=== PATIENT | female | born 1945 | race African-American/Black ===

== ENCOUNTER 2019-08-20 11:51 | Emergency (ER) | payer BC ==
[~2019-08-20] VITALS: Ht 170.2 cm; Wt 127.0 kg
[2019-08-20] MEDS ORDERED: LOSARTAN POTASS25 MG ORAL (12:14)
--- NOTE | 2019-08-20 12:16 | Emergency Room Report ---
History of Present Illness General Chief Complaint: To Be Triaged Present Illness HPI 74-year-old female presents to the emergency department complaining of 8 out of 10 severity localized pain, tenderness, open wounds and bleeding to the distal aspect of the left fingers x1 day. Patient reports that she accidentally closed her hand in the car door this morning. Patient denies taking blood thinning medication she reports history of allergy to naproxen/Aleve. Patient states she has not taken any medications for her pain she denies significant past medical history. Pt. is unsure when her last tdap vaccination was. Pt. Is right-hand dominant. Denies numbness tingling or loss of sensation or gross motor movements of the extremities, Denies CP, Palpitations, LOC, AMS, dizziness, Changes in Vision, weakness or a sudden severe headache. Allergies: Coded Allergies: NAPROXEN (Verified Allergy, Unknown, INTERNAL BLEEDING, 11/03/17) Patient History Past Medical History: see triage record Past Surgical History: none Pertinent Family History: none Now: No Reviewed Nursing Documentation: PMH: Agreed; PSxH: Agreed Review of Systems All Other Systems: negative except mentioned in HPI Physical Exam Sp02 EP Interpretation: reviewed, normal General Appearance: no apparent distress, alert, GCS 15, non-toxic Head: normocephalic, atraumatic Eyes: bilateral eye normal inspection, bilateral eye PERRL ENT: hearing grossly normal, normal voice Neck: full range of motion Respiratory: lungs clear, normal breath sounds, speaking full sentences Cardiovascular #1: regular rate, rhythm, normal capillary refill Musculoskeletal: gait/station normal, normal range of motion, tender - TTP distal LMF and left index finger just proximal to cuticle fold. avulsion of the cuticles noted. no evidence of tendond involvement, able to flex and extend both affected fingers, no paresthesias. Neurologic: alert, oriented x3, responsive, motor strength/tone normal, sensory intact, speech normal, grossly normal Psychiatric: judgement/insight normal Skin: other - avulsion lacerations of the cuticles of the left middle and index finger. Lymphatic: no adenopathy Medical Decision Making PA Attestation Dr. Mera is my supervising Physician whom patient management has been discussed with. Diagnostic Impression: Primary Impression: Fracture, finger, distal phalanx Qualified Codes: S62.663A - Nondisplaced fracture of distal phalanx of left middle finger, initial encounter for closed fracture Additional Impressions: Avulsion of skin of finger without complication Qualified Codes: S61.209A - Unspecified open wound of unspecified finger without damage to nail, initial encounter Crush injury to finger Qualified Codes: S67.10XA - Crushing injury of unspecified finger(s), initial encounter ER Course 74-year-old female presents to the emergency department complaining of 8 out of 10 severity localized pain, tenderness, open wounds and bleeding to the distal aspect of the left fingers x1 day. Patient reports that she accidentally closed her hand in the car door this morning. Patient denies taking blood thinning medication she reports history of allergy to naproxen/Aleve. Patient states she has not taken any medications for her pain she denies significant past medical history. Pt. is unsure when her last tdap vaccination was. Pt. Is right-hand dominant. Denies numbness tingling or loss of sensation or gross motor movements of the extremities, Denies CP, Palpitations, LOC, AMS, dizziness, Changes in Vision, weakness or a sudden severe headache. Ddx considered but are not limited to Fracture, dislocation, contusion, Sprain/ Strain/Spasm, Laceration, crush injury, subungual hematoma, compartment syndrome , dislocation just to name a few. Vital signs: are WNL, pt. is afebrile H&PE are most consistent with musculoskeletal injury will perform imaging to r/ o fractures/dislocations. ORDERS: - X-ray left hand 3 views - negative for fx, Dislocation, or significant soft tissue injury, per preliminary read in ED, and signed by AWA Pop , my supervising physician has reviewed, and agrees with my interpretation. ED INTERVENTIONS: - avulsion lacerations were cleaned, examined and Neosporin was then applied with sterile dressing. - Tylenol PO -- pt. is driving. - Ice pack is applied to the affected area. - Long finger splint applied to the left middle finger by airborne weapons technical manager. Pt. remains neurovascularly intact. DISCHARGE: At this time pt. is stable for d/c to home. Will provide printed patient care instructions, and any necessary prescriptions. Care plan and follow up instructions have been discussed with the patient prior to discharge. Other X-Ray Diagnostic Results Other X-Ray Diagnostic Results : X-Ray ordered: Left Hand # of Views/Limited Vs Complete: 4 View Indication: Pain EP Interpretation: Yes PA Xray: Interpretation reviewed, by supervising MD, and agrees with findings. Interpretation: no dislocation, no soft tissue swelling, other - distal 5th phalanx fx. Impression: Other Electronically Signed by: Verona Pop PA-C Status: improved Disposition: HOME, SELF-CARE Condition: Stable Scripts Hydrocodone Bit/Acetaminophen 5-325* (NORCO 5-325*) 1 Each Tablet 1 TAB ORAL Q6H PRN for For Pain, #6 TAB 0 Refills Prov: Verona Pop 08/20/19 Referrals: Orthopedic Urgent Care Patient Instructions: Crush Injury, Fingers or Toes, [id number], Finger Fracture, [id number] Additional Instructions: Take medications as directed. Do not drink alcohol, drive, or operate heavy machinery while taking Tylenol # 3 as this may cause drowsiness. This medication is an opiate and is highly addictive in nature, please only use sparingly for break-through pain. Follow up with an [facility] in 3-5 days, even if your symptoms have resolved. --Please review list of primary care clinics, if you do not already have a primary care provider who can give you an Orthopedic Referral. Return sooner to ED if new symptoms occur, or current symptoms become worse. - Please note that this Emergency Department Report was dictated using [employer] Bloomed[employer] speech technology software, occasionally this can lead to erroneous entry secondary to interpretation by the dictation equipment. Verona Pop Aug 20, 2019 12:16
--- NOTE | 2019-08-20 12:19 | NUR ---
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 pt reports closing the car door on her L hand, there are 2 1 cm lacerations, one on the middle and one on the index finger that are mildly bleeding. cap refill is <3 seconds, finger tips are warm to touch. pt rates pain 6/10 that worsens with movement of fingers.
[2019-08-20 12:25] VITALS: BP 176/100
[2019-08-20] MEDS ORDERED: Tetanus/Diptheria/Pertussis IM ONE (12:30)
[2019-08-20] MEDS ORDERED: Neosporin Oint Ud Pkt TOPIC ONE (13:15)
[2019-08-20] MEDS ORDERED: NORCO 5-325 TA1 EACH ORAL (13:29)
--- NOTE | 2019-08-20 13:45 | NUR ---
ER DISCHARGE NOTE:pt. had finger splint placed by school bus technician Patient is cleared to be discharged per ERMD, pt is aox4, on room air, with stable vital signs. pt was given dc and prescription instructions, pt was able to verbalize understanding, pt is able to ambulate with cane. pt took all belongings.
--- NOTE | 2019-08-20 13:46 | Diagnostic Imaging Report ---
Indication: Left hand pain Technique: 3 views left hand Comparison: none Findings: Unusual very dense 4 mm diameter ovoid opacity is seen projected adjacent to the lateral aspect of the fourth middle phalangeal head On lateral view, there is questionable slight discontinuity to the posterior cortex of the third distal phalanx. Suspect on the basis of physiologic bony overlap but nondisplaced fracture not completely excludable. No other acute fractures. No dislocations. There are degenerative changes of the first carpometacarpal joint Impression: Findings suspicious for nondisplaced third distal phalangeal fracture. Unusual density adjacent to the fourth middle phalangeal head. This may reflect an unusual developmental abnormality or some very dense heterotopic new bone, less likely foreign body Findings discussed by phone with nurse practitioner Verona Pop in the emergency room at the time of dictation
[2019-08-20 13:53] VITALS: BP 176/100
== END 2019-08-20 13:55 | disposition home or self-care (01) ==
LOC: EMR 13:20
DX: S62.663A Nondisplaced fracture of distal phalanx of left middle finger, initial encounter for closed fracture (principal); S61.201A Unspecified open wound of left index finger without damage to nail, initial encounter; S61.203A Unspecified open wound of left middle finger without damage to nail, initial encounter; S67.10XA Crushing injury of unspecified finger(s), initial encounter; W23.0XXA Caught, crushed, jammed, or pinched between moving objects, initial encounter; Y92.9 Unspecified place or not applicable; Z88.8 Allergy status to other drugs, medicaments and biological substances; Z23 Encounter for immunization
CPT/HCPCS: 29130; 90471; 90715; 99283